=== PATIENT | female | born 1975 | race Caucasian/White ===

== ENCOUNTER 2023-01-15 17:27 | Emergency (ER) | payer BC, OTHER ==
[~2023-01-15] VITALS: Ht 152.4 cm; Wt 87.3 kg
[2023-01-15] MEDS ORDERED: AMLO-257 PO (17:46)
[2023-01-15] MEDS ORDERED: ACETAMINOPHEN 500 MG TABLET PO ONE (19:00)
[2023-01-15] MEDS ORDERED: LIDOCAINE 5% TRANSDERMAL PATCH TD ONE (19:00)
[2023-01-15 23:27] VITALS: BP 128/65; PULSE 71; RESP 16; TEMP 97.3
== END 2023-01-16 01:32 | disposition home or self-care (01) ==
LOC: EDBD 17:34 → EMS 17:34
DX: S40.011A Contusion of right shoulder, initial encounter (principal); S20.211A Contusion of right front wall of thorax, initial encounter; I10 Essential (primary) hypertension; Z98.890 Other specified postprocedural states; V89.2XXA Person injured in unspecified motor-vehicle accident, traffic, initial encounter; Y93.89 Activity, other specified; Y92.89 Other specified places as the place of occurrence of the external cause; Y99.8 Other external cause status
CPT/HCPCS: 70450; 71250; 72125; 72128; 99284